=== PATIENT | male | born 1985 | race Two or more races ===

== ENCOUNTER → 2025-04-07 | Outpatient (CLI) | payer BC, SELFPAY ==
--- NOTE | 2025-04-07 | XR_ITS ---
Examination: Abdomen sonogram, complete Date and time of exam: April 07, 2025 1332 hours INDICATIONS: Epigastric pain and vomiting today. Technique: Multiple real-time grayscale transabdominal sonographic images of the abdomen have been obtained. Findings: Normal gallbladder Normal common bile duct 0.3 cm Pancreatic head 3.3 cm Aorta not enlarged Liver 17.4 cm fatty infiltration Normal hepatopedal portal venous flow Patent IVC Right kidney 11.3 cm cortex 1.4 cm Left kidney 10.8 cm cortex 2.2 cm Mild renal parenchymal scar formation Spleen 9.6 cm IMPRESSION: Normal gallbladder Mild hepatomegaly fatty liver
== END | disposition home or self-care (01) ==
LOC: CDIM 13:17
PROVIDERS: PCP Family Medicine; Referring Provider Family Medicine; Visit Provider Family Medicine
DX: K76.0 Fatty (change of) liver, not elsewhere classified (principal)
CPT/HCPCS: 76700